=== PATIENT | female | born 1970 | race African-American/Black ===

== ENCOUNTER 2016-05-02 11:53 | Emergency (ER) | payer OTHER ==
[~2016-05-02] VITALS: Ht 167.6 cm; Wt 108.9 kg
[~2016-05-02 11:53] MED LIST: BUTA1CAP29 PO
[2016-05-02] MEDS ORDERED: ACETAMINOPHEN/CODEINE 300/30MG TABLET PO ONE (13:00)
[2016-05-02] MEDS ORDERED: KETOROLAC TROMETHAMINE 30 MG/ML SYRINGE. IV ONE (13:00)
--- NOTE | 2016-05-02 13:21 | RAD ---
Indication: Cough and congestion, weakness, for one week. Technique: Two-view chest radiograph was obtained. No comparison is available. Findings: The lungs are clear. The cardiopulmonary silhouette is within normal limits. There is no pleural effusion. The bony structures are intact. Leads overlie the patient. Impression: No acute thoracic findings.
[2016-05-02 13:49] LABS: BASO % 0 % (0-3); EOS % 4 % (0-3); HEMOGLOBIN 11.1 g/dL (12.0-15.5); LYMPH # 1.7 x10^3/uL (1.0-4.8); LYMPH % 26 % (24-48); MEAN CORPUSCULAR HEMOGLOBIN 25 pg (25-35); MEAN CORPUSCULAR HGB CONC 31 g/dL (31-37); MEAN CORPUSCULAR VOLUME 82 fL (79-100); MONO % 10 % (0-9); NEUT % 59 % (31-73); PLATELET COUNT 268 x10^3/uL (140-400); RED BLOOD COUNT 4.38 x10^6/uL (3.50-5.40); WHITE BLOOD COUNT 6.6 x10^3/uL (4.0-11.0)
[2016-05-02 14:18] LABS: CALCIUM 9.4 mg/dL (8.5-10.1); CREATININE 0.8 mg/dL (0.6-1.0); GFR 93.4; POTASSIUM 3.2 mmol/L (3.5-5.1)
[2016-05-02 14:24] LABS: ALBUMIN 3.3 g/dL (3.4-5.0); ALBUMIN/GLOBULIN RATIO 0.7 (1.0-1.7); TOTAL BILIRUBIN 0.4 mg/dL (0.2-1.0); TOTAL PROTEIN 7.8 g/dL (6.4-8.2)
[2016-05-02 15:00] VITALS: BP 144/88
[2016-05-02] MEDS ORDERED: AZIT250T6 PO (15:14)
[2016-05-02] MEDS ORDERED: ACET-704 PO (15:14)
--- NOTE | 2016-05-02 15:14 | PHYS DOC ---
Past Medical History Past Medical History: Hypertension Past Surgical History: , Other Additional Past Surgical Histo: RIGHT LEG Alcohol Use: Occasionally Drug Use: None Adult General Chief Complaint Chief Complaint: COUGH HPI HPI Patient is a 45 year old female who states she has been sick for one week with a cough, she feels short of air at times, she just feels weak and bad, she is not able to sleep because of the cough. She thought she would be getting better by now but if anything she is getting worse. No GI symptoms. She has no history of asthma or COPD. She is in good general health. Review of Systems Review of Systems Constitutional: She has felt feverish and chilly at times Eyes: Denies change in visual acuity, redness, or eye pain [] HENT: Denies nasal congestion or sore throat [] Respiratory: As in history of present illness Cardiovascular: Pain in her chest when she coughs and soreness in the chest GI: Denies abdominal pain, nausea, vomiting, bloody stools or diarrhea [] : Denies dysuria or hematuria [] Musculoskeletal: Denies back pain or joint pain [] Integument: Denies rash or skin lesions [] Neurologic: Denies headache, focal weakness or sensory changes [] Endocrine: Denies polyuria or polydipsia [] Current Medications Current Medications Current Medications Medications (Trade) Dose Ordered Sig/Lisa Start Time Stop Time Status Last Admin Dose Admin Acetaminophen/ Codeine Phosphate (Tylenol #3) 1 tab 1X ONCE 05/02/16 13:00 05/02/16 13:05 DC 05/02/16 13:30 1 TAB Ketorolac Tromethamine (Toradol) 30 mg 1X ONCE 05/02/16 13:00 05/02/16 13:05 DC 05/02/16 13:31 30 MG Allergies Allergies Allergies Coded Allergies Type Severity Reaction Last Updated Verified diphenhydramine Allergy Unknown HIVES 12/23/15 Yes Physical Exam Physical Exam Constitutional: Well developed, well nourished, no acute distress, non-toxic appearance. [] Alert, mentating normally, not dyspneic, pulse ox on room air 99% . She does have a frequent cough. HENT: Normocephalic, atraumatic, bilateral external ears normal,, nose normal. [ ] Eyes: conjunctiva normal, no discharge. [] Neck: Normal range of motion, , no stridor. [] Cardiovascular:Heart rate regular rhythm, no murmur [] Lungs & Thorax: Bilateral breath sounds clear to auscultation , no wheezes, good air movement throughout, no rales or rhonchi Abdomen: Bowel sounds normal, soft, no tenderness, no masses, no pulsatile masses. [] Skin: Warm, dry, no erythema, no rash. [] Back: No tenderness, no CVA tenderness. [] Extremities: No tenderness, no cyanosis, no clubbing, ROM intact, no edema. [] Neurologic: Alert and oriented X 3, normal motor function, normal sensory function, no focal deficits noted. [] Current Patient Data Vital Signs Vital Signs Date Time Temp Pulse Resp B/P Pulse Ox O2 Delivery O2 Flow Rate FiO2 05/02/16 15:00 80 20 144/88 95 05/02/16 12:25 97.6 Room Air 97.6 Lab Values Laboratory Tests Test 05/02/16 13:28 White Blood Count 6.6x10^3/uL (4.0-11.0) Red Blood Count 4.38x10^6/uL (3.50-5.40) Hemoglobin 11.1g/dL (12.0-15.5) L Hematocrit 36.0% (36.0-47.0) Mean Corpuscular Volume 82fL (79-100) Mean Corpuscular Hemoglobin 25pg (25-35) Mean Corpuscular Hemoglobin Concent 31g/dL (31-37) Red Cell Distribution Width 15.0% (11.5-14.5) H Platelet Count 268x10^3/uL (140-400) Neutrophils (%) (Auto) 59% (31-73) Lymphocytes (%) (Auto) 26% (24-48) Monocytes (%) (Auto) 10% (0-9) H Eosinophils (%) (Auto) 4% (0-3) H Basophils (%) (Auto) 0% (0-3) Neutrophils # (Auto) 3.9x10^3uL (1.8-7.7) Lymphocytes # (Auto) 1.7x10^3/uL (1.0-4.8) Monocytes # (Auto) 0.7x10^3/uL (0.0-1.1) Eosinophils # (Auto) 0.3x10^3/uL (0.0-0.7) Basophils # (Auto) 0.0x10^3/uL (0.0-0.2) Sodium Level 143mmol/L (136-145) Potassium Level 3.2mmol/L (3.5-5.1) L Chloride Level 104mmol/L (98-107) Carbon Dioxide Level 31mmol/L (21-32) Anion Gap 8 (6-14) Blood Urea Nitrogen 10mg/dL (7-20) Creatinine 0.8mg/dL (0.6-1.0) Estimated GFR (Cockcroft-Gault) 93.4 BUN/Creatinine Ratio 13 (6-20) Glucose Level 88mg/dL (70-99) Calcium Level 9.4mg/dL (8.5-10.1) Total Bilirubin 0.4mg/dL (0.2-1.0) Aspartate Amino Transferase (AST) 43U/L (15-37) H Alanine Aminotransferase (ALT) 54U/L (14-59) Alkaline Phosphatase 132U/L (46-116) H Total Protein 7.8g/dL (6.4-8.2) Albumin 3.3g/dL (3.4-5.0) L Albumin/Globulin Ratio 0.7 (1.0-1.7) L Laboratory Tests 05/02/16 13:28 Laboratory Tests 05/02/16 13:28 EKG EKG 12-lead EKG read by me. Sinus rhythm. Heart rate 93. There are no acute ST or T wave changes indicative of ischemia or infarction. No STEMI. 1234 [] Radiology/Procedures Radiology/Procedures Two-view chest x-ray read by me. No acute cardiopulmonary abnormality. No infiltrate. [] Course & Med Decision Making Course & Med Decision Making Pertinent Labs and Imaging studies reviewed. (See chart for details) 45-year-old female in good general health has had a chest cold for about a week , getting worse instead of better, with a lot of cough that is making her chest sore and keeping her up at night. Chest x-ray clear without infiltrate. We will treat her with a Z-Edison and Tylenol with Codeine for cough suppressant. Plenty of fluids. Return precautions given. [] Dragon Disclaimer Dragon Disclaimer This electronic medical record was generated, in whole or in part, using a voice recognition dictation system. Departure Departure Impression: Primary Impression: Bronchitis Disposition: 01 HOME, SELF-CARE Condition: STABLE Referrals: UNKNOWN PCP NAME (PCP) Patient Instructions: Acute Bronchitis, [id number] Additional Instructions: Because you have had symptoms for a week, we will treat with an antibiotic. The Z-Edison is an antibiotic. For cough, I have prescribed Tylenol with Codeine. This will make you sleepy and constipated but is a good cough suppressant. For aches and pains, I recommend ibuprofen 600 mg every 6-8 hours, over-the- counter. For the swelling and ache in your chest, I recommend ice or a cold pack. Your potassium was a little bit low, this may be due to your blood pressure medication, try and increase in the potassium in your diet such as a banana or orange every day. Ask your doctor to recheck this when you are feeling well. Scripts Acetaminophen With Codeine (Tylenol With Codeine #3 Tablet)1 Each Tablet1 Tab PO PRN Q4HRS PRN PAIN #14 TAB As needed for cough Prov:CHARISSE ARAIZA MD 05/02/16 Azithromycin (Azithromycin Tablet)250 Mg Tablet1 Pkg PO UD #6 TAB For cough, bronchitis, antibiotic Prov:CHARISSE ARAIZA MD 05/02/16 CHARISSE ARAIZA MD May 02, 2016 15:14
--- NOTE | 2016-05-03 06:26 | EKG ---
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
== END 2016-05-02 15:24 | disposition home or self-care (01) ==
LOC: ER 11:53
DX: J40 Bronchitis, not specified as acute or chronic (principal); R53.1 Weakness; I10 Essential (primary) hypertension; Z88.8 Allergy status to other drugs, medicaments and biological substances
CPT/HCPCS: 36415; 71020; 80053; 85027; 93005; 96374; 99285; J1885

== ENCOUNTER 2018-09-20 05:36 | Emergency (ER) | payer OTHER ==
[~2018-09-20] VITALS: Ht 165.1 cm; Wt 113.4 kg
[~2018-09-20 05:36] MED LIST changes: +ACET-704 PO; +ALPR1TAB2 PO; +AMLO5TAB4 PO; +AZIT250T6 PO; +HYDR-2145 PO; +HYDR-2759 PO; +LISI-130 PO
--- NOTE | 2018-09-20 06:13 | PHYS DOC ---
Past Medical History Past Medical History: Hypertension, Migraines Past Surgical History: , Other Additional Past Surgical Histo: RIGHT LEG Alcohol Use: Occasionally Drug Use: None Adult General Chief Complaint Chief Complaint: DIZZY/LIGHT HEADED HPI HPI 48-year-old female who presents emergency department today after having dizziness that started at 2:00 this morning. She describes the room is spinning. It is constant vertigo that is worse when she stands up and improved with rest. It was worsened when she moved around some patio chairs early this morning where she had a presyncopal event but did not lose consciousness. She did not hit her head at that time and denies any injuries from the event she fell into a chair actually. Review of systems is negative for chest pain shortness of breath fevers chills abdominal pain and vomiting. All other review of systems is negative. ED course: 48-year-old female presenting with vertigo. EKG obtained and reviewed by myself shows sinus rhythm with a regular rate. ST segments are congruent. Not suggestive of ACS. Head CT is unremarkable. Blood work shows a mild anemia. Chemistry panel is unremarkable. Troponin within normal limits. D-dimer was elevated so CT angiogram was performed. Urinalysis shows increased specific gravity with mild blood. Otherwise squamous cells present likely contaminated. Not suggestive of infection. CT angios shows no acute pulmonary embolism. Chronic findings present which patient and follow-up with PCP in 1-2 days for. On reexamination she is feeling mildly improved. We'll discharge her home to llow up with her PCP in one to 2 days. Current Medications Current Medications Current Medications Medications (Trade) Dose Ordered Sig/Lisa Start Time Stop Time Status Last Admin Dose Admin Info (CONTRAST GIVEN -- Rx MONITORING) 1 each PRN DAILY PRN 09/20/18 10:30 09/22/18 10:29 Iohexol (Omnipaque 350 Mg/ml) 100 ml 1X ONCE 09/20/18 10:15 09/20/18 10:17 DC 09/20/18 10:35 100 ML Lorazepam (Ativan) 1 mg 1X ONCE 09/20/18 08:15 09/20/18 08:16 DC 09/20/18 08:23 1 MG Meclizine HCl (Antivert) 25 mg 1X ONCE 09/20/18 07:00 09/20/18 07:01 DC 09/20/18 07:25 25 MG Ondansetron HCl (Zofran) 4 mg 1X ONCE 09/20/18 08:15 09/20/18 08:16 DC 09/20/18 08:23 4 MG Sodium Chloride 1,000 ml @ 1,000 mls/hr 1X ONCE 09/20/18 06:30 09/20/18 07:29 DC 09/20/18 07:25 1,000 MLS/HR Allergies Allergies Allergies Coded Allergies Type Severity Reaction Last Updated Verified diphenhydramine Allergy Intermediate HIVES 01/30/18 Yes Physical Exam Physical Exam Constitutional: Well developed, well nourished, no acute distress, non-toxic appearance. [] HENT: Normocephalic, atraumatic, bilateral external ears normal, oropharynx moist, no oral exudates, nose normal. [] Eyes: PERRLA, EOMI, conjunctiva normal, no discharge. [] Neck: Normal range of motion, no tenderness, supple, no stridor. [] Cardiovascular:Heart rate regular rhythm, no murmur [] Lungs & Thorax: Bilateral breath sounds clear to auscultation [] Abdomen: Bowel sounds normal, soft, no tenderness, no masses, no pulsatile masses. [] Skin: Warm, dry, no erythema, no rash. [] Back: No tenderness, no CVA tenderness. [] Extremities: No tenderness, no cyanosis, no clubbing, ROM intact, no edema. [] Neurologic: Mental status: Awake oriented and alert x3 Cranial nerves: Extraocular movements intact, eyebrows alessandro bilaterally, smile symmetric, uvula elevation nl, shoulder shrug intact bilaterally, tongue protrusion normal DTRs: 2+ Sensation: equal and normal in all extremities Strength: 5/5 in upper and lower extremities bilaterally Head impulse overshoots with lateral rotatory nystagmus. no skew. suggestive of peripheral vertigo. Psychologic: Affect normal, judgement normal, mood normal. [] Current Patient Data Vital Signs Vital Signs Date Time Temp Pulse Resp B/P (MAP) Pulse Ox O2 Delivery O2 Flow Rate FiO2 09/20/18 09:51 74 16 99 09/20/18 06:16 98.1 143/86 (105) Room Air 98.1 Lab Values Laboratory Tests Test 09/20/18 06:05 09/20/18 06:12 09/20/18 07:20 Urine Collection Type Void Urine Color Yellow Urine Clarity Clear Urine pH 5.0 Urine Specific [place] >=1.030 Urine Protein Negative mg/dL (NEG-TRACE) Urine Glucose (UA) Negative mg/dL (NEG) Urine Ketones (Stick) Negative mg/dL (NEG) Urine Blood Trace (NEG) Urine Nitrite Negative (NEG) Urine Bilirubin Negative (NEG) Urine Urobilinogen Dipstick 0.2 mg/dL (0.2 mg/dL) Urine Leukocyte Esterase Negative (NEG) Urine RBC 1-2 /HPF (0-2) Urine WBC 1-4 /HPF (0-4) Urine Squamous Epithelial Cells Many /LPF Urine Bacteria Few /HPF (0-FEW) Urine Mucus Marked /LPF POC Urine HCG, Qualitative Hcg negative (Negative) White Blood Count 8.9 x10^3/uL (4.0-11.0) Red Blood Count 4.31 x10^6/uL (3.50-5.40) Hemoglobin 11.4 g/dL (12.0-15.5) L Hematocrit 35.9 % (36.0-47.0) L Mean Corpuscular Volume 83 fL (79-100) Mean Corpuscular Hemoglobin 27 pg (25-35) Mean Corpuscular Hemoglobin Concent 32 g/dL (31-37) Red Cell Distribution Width 15.2 % (11.5-14.5) H Platelet Count 345 x10^3/uL (140-400) Neutrophils (%) (Auto) 73 % (31-73) Lymphocytes (%) (Auto) 17 % (24-48) L Monocytes (%) (Auto) 8 % (0-9) Eosinophils (%) (Auto) 2 % (0-3) Basophils (%) (Auto) 0 % (0-3) Neutrophils # (Auto) 6.4 x10^3/uL (1.8-7.7) Lymphocytes # (Auto) 1.5 x10^3/uL (1.0-4.8) Monocytes # (Auto) 0.7 x10^3/uL (0.0-1.1) Eosinophils # (Auto) 0.2 x10^3/uL (0.0-0.7) Basophils # (Auto) 0.0 x10^3/uL (0.0-0.2) D-Dimer (Jennifer) 2.38 ug/mlFEU (0.00-0.50) H Sodium Level 143 mmol/L (136-145) Potassium Level 3.6 mmol/L (3.5-5.1) Chloride Level 106 mmol/L (98-107) Carbon Dioxide Level 25 mmol/L (21-32) Anion Gap 12 (6-14) Blood Urea Nitrogen 14 mg/dL (7-20) Creatinine 0.7 mg/dL (0.6-1.0) Estimated GFR (Cockcroft-Gault) 107.6 BUN/Creatinine Ratio 20 (6-20) Glucose Level 98 mg/dL (70-99) Calcium Level 9.5 mg/dL (8.5-10.1) Total Bilirubin 0.3 mg/dL (0.2-1.0) Aspartate Amino Transferase (AST) 18 U/L (15-37) Alanine Aminotransferase (ALT) 27 U/L (14-59) Alkaline Phosphatase 142 U/L (46-116) H Troponin I Quantitative < 0.017 ng/mL (0.000-0.055) Total Protein 7.7 g/dL (6.4-8.2) Albumin 3.5 g/dL (3.4-5.0) Albumin/Globulin Ratio 0.8 (1.0-1.7) L Laboratory Tests 09/20/18 07:20 Laboratory Tests 09/20/18 07:20 EKG EKG [] Radiology/Procedures Radiology/Procedures [] Course & Med Decision Making Course & Med Decision Making Pertinent Labs and Imaging studies reviewed. (See chart for details) [] Dragon Disclaimer Dragon Disclaimer This electronic medical record was generated, in whole or in part, using a voice recognition dictation system. Departure Departure Impression: Primary Impression: Vertigo Disposition: 01 HOME, SELF-CARE Condition: STABLE Referrals: UNKNOWN PCP NAME (PCP) Patient Instructions: Vertigo, [id number] Additional Instructions: Thank you for allowing us to participate in your care today. Return to the emergency department you have any new or worsening symptoms, or if you are concerned for any reason. Return to emergency department if you have any new or concerning symptoms including but not limited to fever, chills, nausea, vomiting, intractable pain, any new rashes, chest pain, shortness of air, uncontrolled bleeding, difficulty breathing, and/or vision loss. Follow up with your primary care physician within 1-2 days. Call your Primary Doctor tomorrow and inform them of your visit today. If you do not have a primary care provider we are happy to provide you with a list of our primary care providers contact information. This condition should be evaluated by your primary care physician and any recommended consulting services for continued management within 2 days after discharge. If at any time, you are having difficulty getting into your primary care doctor or a specialist, return to the emergency department. Scripts Meclizine Hcl (MECLIZINE HCL) 25 Mg Tablet 25 MG PO PRN Q24HRS PRN for DIZZINESS, #10 TAB Prov: VERN CERVANTES MD 09/20/18 VERN CERVANTES MD Sep 20, 2018 06:13
[2018-09-20] MEDS ORDERED: IV NORMAL SALINE 1000ML BAG 1,000 ML IV ONE (06:30)
[2018-09-20] MEDS ORDERED: MECLIZINE HCL 12.5 MG TABLET. PO ONE (07:00)
--- NOTE | 2018-09-20 07:26 | EKG ---
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
[2018-09-20 07:33] LABS: BILIRUBIN,URINE NEGATIVE (NEG); CLARITY,URINE CLEAR; COLOR,URINE YELLOW; NITRITE,URINE NEGATIVE (NEG); PROTEIN,URINE NEGATIVE (NEG-TRACE); UROBILINOGEN,URINE 0.2 mg/dL (0.2 mg/dL)
[2018-09-20 07:36] LABS: BASO % 0 % (0-3); EOS # 0.2 x10^3/uL (0.0-0.7); EOS % 2 % (0-3); HEMATOCRIT 35.9 % (36.0-47.0); HEMOGLOBIN 11.4 g/dL (12.0-15.5); LYMPH # 1.5 x10^3/uL (1.0-4.8); LYMPH % 17 % (24-48); MEAN CORPUSCULAR HEMOGLOBIN 27 pg (25-35); MEAN CORPUSCULAR HGB CONC 32 g/dL (31-37); MEAN CORPUSCULAR VOLUME 83 fL (79-100); MONO # 0.7 x10^3/uL (0.0-1.1); MONO % 8 % (0-9); NEUT # 6.4 x10^3/uL (1.8-7.7); NEUT % 73 % (31-73); PLATELET COUNT 345 x10^3/uL (140-400); RED BLOOD COUNT 4.31 x10^6/uL (3.50-5.40); RED CELL DISTRIBUTION WIDTH 15.2 % (11.5-14.5); WHITE BLOOD COUNT 8.9 x10^3/uL (4.0-11.0)
[2018-09-20 07:44] LABS: CALCIUM 9.5 mg/dL (8.5-10.1); CREATININE 0.7 mg/dL (0.6-1.0); GFR 107.6; POTASSIUM 3.6 mmol/L (3.5-5.1)
[2018-09-20 07:49] LABS: ALBUMIN 3.5 g/dL (3.4-5.0); ALBUMIN/GLOBULIN RATIO 0.8 (1.0-1.7); TOTAL BILIRUBIN 0.3 mg/dL (0.2-1.0); TOTAL PROTEIN 7.7 g/dL (6.4-8.2)
[2018-09-20 07:57] LABS: SQUAMOUS EPITHELIAL CELL,UR MANY /LPF
[2018-09-20 07:59] LABS: BACTERIA,URINE FEW /HPF (0-FEW)
[2018-09-20] MEDS ORDERED: LORazepam 0.5 MG TABLET PO ONE (08:15)
[2018-09-20] MEDS ORDERED: ONDANSETRON PF 4 MG/2 ML VIAL. IV ONE (08:15)
--- NOTE | 2018-09-20 09:46 | RAD ---
PQRS Compliance Statement: One or more of the following individualized dose reduction techniques were utilized for this examination: 1. Automated exposure control 2. Adjustment of the mA and/or kV according to patient size 3. Use of iterative reconstruction technique CT HEAD WITHOUT CONTRAST History: Dizzy, chest pain. Comparison: None. Procedure: Axial images are obtained of the head from the skull base through the vertex without IV contrast. Findings: The ventricles and sulci are normal for the patient's age. No mass-effect, midline shift, hemorrhage, extra-axial fluid collection, or obvious acute infarction is identified. Basilar cisterns are patent. Bone windows demonstrate no acute calvarial abnormality. The visualized paranasal sinuses are clear. Mastoid air cells are well aerated. IMPRESSION: No acute intracranial abnormality. Electronically signed by: Cruz Kincaid MD (09/20/2018 9:43 AM) [id number]
[2018-09-20] MEDS ORDERED: IOHEXOL 350 MG/ML 100 ML VIAL. IV ONE (10:15)
[2018-09-20] MEDS ORDERED: CONTRAST GIVEN. MC PRN (10:30)
[2018-09-20 10:51] VITALS: BP 130/81
--- NOTE | 2018-09-20 11:16 | RAD ---
PQRS Compliance Statement: One or more of the following individualized dose reduction techniques were utilized for this examination: 1. Automated exposure control 2. Adjustment of the mA and/or kV according to patient size 3. Use of iterative reconstruction technique CT CHEST WITH CONTRAST, PULMONARY ANGIOGRAM History: Dizzy, chest pain. Comparison: CT chest with contrast, January 31, 2018. Technique: Helical CT of the chest was performed after the administration of 100 cc of Omnipaque 350 intravenous contrast according to PE protocol. Axial and coronal reconstructions were obtained. 3-D MIP images were constructed to better evaluate the pulmonary arteries. Findings: Pulmonary arteries are adequately opacified. There is no evidence of acute pulmonary embolism. Redemonstrated severe narrowing of the right upper lobe pulmonary artery. The thyroid is incompletely imaged, appears multinodular. Bilateral axillary lymph nodes are stable. In the upper mediastinum there is soft tissue density with small calcifications, unchanged. This is along the course of the right upper lobe pulmonary artery. There is no thoracic aortic dissection. Cardiac size normal. Trace pericardial effusion. There is no pleural effusion. The central airways are patent. There is mild right upper lobe peribronchial thickening. No lung consolidation is seen. There is fatty infiltration of the liver. There is relative hyperdensity in the right hepatic lobe measuring 2.7 cm. Cholecystectomy. Stable left adrenal nodule. Thoracic spine alignment is maintained. Stable deformity of the right fifth rib. IMPRESSION: 1. There is no CT evidence of acute pulmonary embolus. 2. Stable small size of right upper lobe pulmonary artery. Considerations include congenital hypoplasia, Swyer-Adam, or fibrosing mediastinitis. 3. Mild right upper lobe bronchitis. 4. Multinodular thyroid. Recommend outpatient thyroid ultrasound if not previously performed. 5. Fatty infiltration of the liver. There is a round hyperdense lesion in the right hepatic lobe. Recommend outpatient MR abdomen with and without contrast. Electronically signed by: Cruz Kincaid MD (09/20/2018 11:13 AM) [id number]
[2018-09-20] MEDS ORDERED: MECL25TA3 PO ×2 (11:38→12:12)
== END 2018-09-20 12:15 | disposition home or self-care (01) ==
LOC: ER 05:36
DX: R42 Dizziness and giddiness (principal); R55 Syncope and collapse; I10 Essential (primary) hypertension; G43.909 Migraine, unspecified, not intractable, without status migrainosus; Z88.8 Allergy status to other drugs, medicaments and biological substances
CPT/HCPCS: 36415; 70450; 71275; 80053; 81001; 81025; 84484; 85025; 85379; 93005; 96361; 96374; 99285; J2405; J7030; J8597; Q9967

== ENCOUNTER 2019-04-21 09:54 | Emergency (ER) | payer OTHER ==
[~2019-04-21] VITALS: Ht 167.6 cm; Wt 80.0 kg
[~2019-04-21 09:54] MED LIST changes: +MECL-75 PO
[2019-04-21 10:10] VITALS: BP 157/102
[2019-04-21] MEDS ORDERED: ORPH100T PO (10:54)
[2019-04-21] MEDS ORDERED: METH4TAB2 PO (10:54)
[2019-04-21] MEDS ORDERED: HYDR-3164 PO (10:54)
[2019-04-21] MEDS ORDERED: IBUP-1007 PO (10:54)
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
== END 2019-04-21 11:00 | disposition home or self-care (01) ==
LOC: ER 09:54
DX: G89.11 Acute pain due to trauma (principal); M54.41 Lumbago with sciatica, right side; I10 Essential (primary) hypertension; G43.909 Migraine, unspecified, not intractable, without status migrainosus; Z90.49 Acquired absence of other specified parts of digestive tract; Z98.890 Other specified postprocedural states; Z88.8 Allergy status to other drugs, medicaments and biological substances; V43.53XA Car driver injured in collision with pick-up truck in traffic accident, initial encounter; Y93.89 Activity, other specified; Y92.413 State road as the place of occurrence of the external cause; Y99.8 Other external cause status
CPT/HCPCS: 99283